=== PATIENT | male | born 1980 | race Caucasian/White ===

== ENCOUNTER 2019-01-16 21:09 | Emergency (ER) | payer OTHER ==
[2019-01-16 21:19] VITALS: BP 133/80; PULSE 62; RESP 18; TEMP 98.3
--- NOTE | 2019-01-16 22:42 | ED ---
ENT HPI - General Source: patient Mode of arrival: ambulatory Limitations: no limitations <Jeronimo Snyder - Last Filed: 01/16/19 22:35> <Genia Bailey P - Last Filed: 01/17/19 22:29> - General Chief complaint: Dental/Oral Stated complaint: Oral Pain Time Seen by Provider: 01/16/19 21:25 - History of Present Illness Initial comments: Patient is a 38-year-old male presenting to the emergency department with right- sided tooth pain. Patient states the pain started a few days ago when he was picking his tooth #32 with a knife after eating. Patient reports his wisdom teeth are not fully erupted. Patient reports seeing a dentist who prescribed amoxicillin with minimal improvement. Patient reports the swelling has increased and is now radiating down his neck. Patient denies fever. Patient has full range of motion on the neck without. Patient denies dysphagia or odynophagia. Patient reports the pain is pulsating for which she takes Vicodin to control pain. (Jeronimo Snyder) - Related Data Previous Rx's Medication Instructions Recorded Clindamycin [Cleocin] 450 mg PO TID #40 capsule 01/16/19 Allergies Allergy/AdvReac Type Severity Reaction Status Date / Time No Known Allergies Allergy Verified 01/16/19 21:19 Review of Systems ROS Other: All systems not noted in ROS Statement are negative. <Jeronimo Snyder - Last Filed: 01/16/19 22:35> ROS Other: All systems not noted in ROS Statement are negative. <Genia Bailey P - Last Filed: 01/17/19 22:29> ROS Statement: Those systems with pertinent positive or pertinent negative responses have been documented in the HPI. Past Medical History Past Medical History: No Reported History History of Any Multi-Drug Resistant Organisms: None Reported Past Surgical History: No Surgical Hx Reported Additional Past Surgical History / Comment(s): collapsed lung Past Psychological History: No Psychological Hx Reported Smoking Status: Never smoker Past Alcohol Use History: None Reported Past Drug Use History: Marijuana <Jeronimo Snyder - Last Filed: 01/16/19 22:35> General Exam Limitations: no limitations General appearance: alert, in no apparent distress Head exam: Present: atraumatic, normocephalic, normal inspection Eye exam: Present: normal appearance, PERRL, EOMI Pupils: Present: normal accommodation ENT exam: Absent: normal oropharynx (Inflammation and swelling on tooth#32 with yellow discharge. Visible swelling and erythema.) Neck exam: Present: full ROM, other (Swelling originating at the angle of mandible.). Absent: tenderness, lymphadenopathy Respiratory exam: Present: normal lung sounds bilaterally Cardiovascular Exam: Present: regular rate, normal rhythm, normal heart sounds Neurological exam: Present: alert, oriented X3 Psychiatric exam: Present: normal affect, normal mood Skin exam: Present: warm, normal color <Jeronimo Snyder - Last Filed: 01/16/19 22:35> Course Vital Signs 01/16/19 21:16 Temperature 98.3 F Pulse Rate 62 Respiratory 18 Rate Blood Pressure 133/80 O2 Sat by Pulse 99 Oximetry Medical Decision Making <Jeronimo Snyder - Last Filed: 01/16/19 22:35> <Genia Bailey - Last Filed: 01/17/19 22:29> - Medical Decision Making Patient is a 38-year-old male presenting to emergency Department with swelling on his wisdom tooth. His physical examination appears patient has a dental abscess on tooth #32 appears to be partially erupted. Patient will be discharged with a course of clindamycin. Patient advised to follow-up with a dentist. Patient advised to return to emergency department if symptoms worsen. Case discussed with physician. (Jeronimo Snyder) I was available for consultation in the emergency department. The history and physical exam were done by the midlevel provider. I was consulted for this patient's care. I reviewed the case with the midlevel provider and based on their presentation of the patient, I agree with the assessment, medical decision making and plan of care as documented. Chart was dictated using [employer] dictation software. Attempts were made to correct any dictation errors however some typographical errors may persist. (Genia Bailey) Disposition Is patient prescribed a controlled substance at d/c from ED?: No Time of Disposition: 22:42 <Jeronimo Snyder - Last Filed: 01/16/19 22:35> <Genia Bailey - Last Filed: 01/17/19 22:29> Clinical Impression: Dental abscess Disposition: HOME SELF-CARE Condition: Stable Instructions (If sedation given, give patient instructions): Dental Abscess (ED) Additional Instructions: Please take prescribed medication as directed. Please follow up with a dentist. Please return to emergency department if symptoms worsen. Prescriptions: Clindamycin [Cleocin] 450 mg PO TID #40 capsule Referrals: Mann Mireles MD [Primary Care Provider] - 1-2 days
== END 2019-01-16 22:43 | disposition home or self-care (01) ==
LOC: EC 21:09
DX: K04.7 Periapical abscess without sinus (principal)
CPT/HCPCS: 99282